=== PATIENT | female | born 2000 | race Two or more races ===

== ENCOUNTER 2024-02-11 07:44 | Inpatient (IN) | payer BC ==
[~2024-02-11] VITALS: Ht 152.4 cm; Wt 117.9 kg
[2024-02-11] MEDS ORDERED: MAGNESIUM SULFATE IN WATER 4 GM/100 ML PIGGYBACK IV ONE ×2 (07:55→09:45)
[2024-02-11] MEDS ORDERED: AMPICILLIN SODIUM 2,000 MG VIAL ONE (07:55)
[2024-02-11] MEDS ORDERED: MAGNESIUM SULFATE IN WATER 0.04 GM/ML IV.SOLN IV ONE ×2 (08:33→12:53)
[2024-02-11 08:42] LABS: HEMATOCRIT 34.5 % (36.0-45.00); HEMOGLOBIN 11.3 g/dL (12.0-15.00); MEAN CELL VOLUME 77.2 fL (80.00-100.00); MEAN CORPUSCULAR HEMOGLOBIN 25.3 pg (27.00-32.0); MEAN CORPUSCULAR HGB CONC 32.8 g/dl (32.0-36.0); PLATELET COUNT 226 K/uL (150-450); RED BLOOD COUNT 4.46 M/uL (4.00-6.00); RED CELL DISTRIBUTION WIDTH 16.1 % (11.5-14.5)
[2024-02-11] MEDS ORDERED: PRENATAL TABLE1 EAC1 PO (08:48)
[2024-02-11 08:54] LABS: PH,URINE 6.5 (5.0-8.0); URINE APPEARANCE Cloudy; URINE BILIRRUBIN Negative (NEGATIVE); URINE BLOOD Small; URINE COLOR Yellow; URINE GLUCOSE Negative (NEGATIVE); URINE LEUKOCYTE Trace; URINE NITRATE Negative; URINE PROTEIN >=1000 (NEGATIVE)
[2024-02-11 08:57] LABS: URINE RBC 4.7 uL (0.0-20.8); URINE WBC 192.6 uL (0.0-23.2)
[2024-02-11] MEDS ORDERED: OXYTOCIN 10 UNITS/ML VIAL ONE ×2 (08:57→12:56)
[2024-02-11] MEDS ORDERED: ERYTHROMYCIN BASE 3.5 GM OINT...G. OP ONE (08:57)
[2024-02-11 09:10] LABS: INR < 0.93; PARTIAL THROMBOPLASTIN TIME 31.2 SECONDS (22.0-34.0); PROTHROMBIN TIME 9.6 SECONDS (9.0-11.5)
[2024-02-11] MEDS ORDERED: LABETALOL HCL 100 MG/20 ML ML ONE ×4 (09:26→13:48)
[2024-02-11 09:29] LABS: BILIRUBIN TOTAL 0.58 mg/dL (0.3-1.2); CALCIUM 8.7 mg/dL (8.5-10.1); CREATININE SERUM 0.67 mg/dL (0.55-1.02); GFR 111.11; GLOBULINA 3.7 G/DL (2.4-3.5); POTASSIUM 3.79 mEq/L (3.5-5.1); TOTAL PROTEIN 5.7 gm/dL (6.4-8.2)
[2024-02-11] MEDS ORDERED: CEFOXITIN SODIUM 2,000 MG VIAL IV SCH (09:30)
[2024-02-11] MEDS ORDERED: ERYTHROMYCIN BASE 1 GM TUBE OP ONE (09:30)
[2024-02-11] MEDS ORDERED: OXYTOCIN 10 UNITS/ML VIAL IV ONE (09:30)
[2024-02-11] MEDS ORDERED: LABETALOL HCL 100 MG/20 ML ML IV PUSH ONE (09:30)
[2024-02-11 09:33] LABS: URINE BACTERIA > 9821.5 uL (0.0-1933); URINE EPITHELIAL CELLS > 201.7 uL (0.0-38.8)
[2024-02-11 09:35] LABS: URINE YEAST NEGATIVE /hpf
[2024-02-11] MEDS ORDERED: AMPICILLIN SODIUM 2,000 MG VIAL IV ONE (09:45)
[2024-02-11] MEDS ORDERED: MAGNESIUM SULFATE IN WATER 0.04 GM/ML IV.SOLN IV SCH (09:45)
[2024-02-11] MEDS ORDERED: ENALAPRILAT DIHYDRATE 1.25 MG/ML VIAL IV ONE ×2 (10:32→12:00)
[2024-02-11 10:57] LABS: RH POSITIVE
[2024-02-11] MEDS ORDERED: SUGAMMADEX SODIUM 200 MG/2 ML VIAL IV ONE ×2 (11:14→12:00)
[2024-02-11] MEDS ORDERED: MEPERIDINE HCL/PF 50 MG/ML VIAL IM PRN (11:45)
[2024-02-11] MEDS ORDERED: OXYTOCIN 1,000 ML IV SCH (11:45)
[2024-02-11] MEDS ORDERED: PROMETHAZINE HCL 50 MG/ML AMPUL IM PRN (11:45)
[2024-02-11 12:20] LABS: ABG PH 7.246 (7.35-7.45)
[2024-02-11 12:21] LABS: ABG PO2 19.6 mmHg (80-100); BASE EXCESS -2.7 mmol/l; BICARBONATE 25.9 mmol/l (23-25); SaO2 22.1 %; Tco2 27.8 mmol/l; o2 21 %
[2024-02-11] MEDS ORDERED: SIMETHICONE 125 MG CAPSULE PO SCH (13:00)
[2024-02-11] MEDS ORDERED: AMPICILLIN SODIUM 1,000 MG VIAL IV SCH (13:00)
[2024-02-11] MEDS ORDERED: LABETALOL HCL 100 MG/20 ML ML IV PUSH STA ×4 (13:55→14:29)
[2024-02-11] MEDS ORDERED: hydrALAZINE HCL 20 MG VIAL ONE (14:40)
[2024-02-11] MEDS ORDERED: hydrALAZINE HCL 20 MG VIAL IV STA (14:46)
[2024-02-11] MEDS ORDERED: PROMETHAZINE HCL 50 MG/ML AMPUL ONE (14:47)
[2024-02-11] MEDS ORDERED: MORPHINE SULFATE 4 MG/ML CARTRIDGE IV PRN (15:15)
[2024-02-11 17:30] LABS: HEMATOCRIT 30.9 % (36.0-45.00); HEMOGLOBIN 10.1 g/dL (12.0-15.00); MEAN CELL VOLUME 77.6 fL (80.00-100.00); MEAN CORPUSCULAR HEMOGLOBIN 25.3 pg (27.00-32.0); MEAN CORPUSCULAR HGB CONC 32.6 g/dl (32.0-36.0); PLATELET COUNT 202 K/uL (150-450); RED BLOOD COUNT 3.98 M/uL (4.00-6.00)
[2024-02-11] MEDS ORDERED: SIMETHICONE 125 MG CAPSULE PO ONE (18:01)
[2024-02-11 18:15] LABS: ALBUMIN 1.6 gm/dL (3.4-5.0); BILIRUBIN TOTAL 0.52 mg/dL (0.3-1.2); CALCIUM 8.4 mg/dL (8.5-10.1); CREATININE SERUM 0.59 mg/dL (0.55-1.02); GFR 128.67; GLOBULINA 3.2 G/DL (2.4-3.5); MAGNESIUM 3.9 mg/dL (1.8-2.4); POTASSIUM 3.98 mEq/L (3.5-5.1); TOTAL PROTEIN 4.8 gm/dL (6.4-8.2)
[2024-02-11] MEDS ORDERED: LABETALOL HCL 100 MG TABLET PO SCH (19:00)
[2024-02-11] MEDS ORDERED: KETOROLAC TROMETHAMINE 30 MG VIAL IV ONE (19:00)
[2024-02-11] MEDS ORDERED: LABETALOL HCL 100 MG TABLET PO ONE (19:50)
[2024-02-11] MEDS ORDERED: hydrALAZINE HCL 20 MG VIAL IV ONE (21:20)
[2024-02-12] MEDS ORDERED: LABETALOL HCL 200 MG TABLET PO ONE (08:27)
[2024-02-12] MEDS ORDERED: LABETALOL HCL 100 MG TABLET PO SCH (09:00)
[2024-02-12] MEDS ORDERED: MAGNESIUM SULFATE IN WATER 500 ML IV SCH (09:45)
[2024-02-12] MEDS ORDERED: TRAMADOL HCL 50 MG TABLET PO PRN (13:30)
[2024-02-12] MEDS ORDERED: ACETAMINOPHEN 500 MG GEL..CAP PO PRN (13:30)
[2024-02-12] MEDS ORDERED: KETOROLAC TROMETHAMINE 10 MG TABLET PO PRN (13:30)
[2024-02-12] MEDS ORDERED: DOCUSATE SODIUM 100MG CAP PO SCH (17:00)
[2024-02-12] MEDS ORDERED: NIFEDIPINE 30 MG TAB.SA.OSM PO ONE (18:30)
[2024-02-12] MEDS ORDERED: FAMOtidine 20 MG TABLET PO SCH (21:00)
[2024-02-13] MEDS ORDERED: NIFEDIPINE 30 MG TAB.SA.OSM PO SCH (14:19)
[2024-02-13 15:59] LABS: RAPID PLASMA REAGIN REACTIVE 4 DILS RPR (NONREACTIVE)
[2024-02-14] MEDS ORDERED: NAPR500T14 PO (09:10)
[2024-02-15] MEDS ORDERED: PENICILLIN G BENZATHINE LA 1.2 MMU/2 ML DISP.SYRIN IM ONE (09:00)
[2024-02-15] MEDS ORDERED: NIFEDIPINE20 MG PO (09:26)
== END 2024-02-15 18:17 | disposition home or self-care (01) | DRG 788 ==
LOC: OB/GYN 07:44 → LDR 07:44 → OB/GYN 02-12 14:16
PROVIDERS: Obstetrics & Gynecology; ADMIT Obstetrics & Gynecology; ATTEND Obstetrics & Gynecology
PROC: 4A1HXCZ Monitoring of Products of Conception, Cardiac Rate, External Approach (ICD-10-PCS; 2024-02-11)
PROC: 10D00Z1 Extraction of Products of Conception, Low, Open Approach (ICD-10-PCS; principal; 2024-02-11 08:00)
DX: O14.14 Severe pre-eclampsia complicating childbirth (principal); O36.8330 Maternal care for abnormalities of the fetal heart rate or rhythm, third trimester, not applicable or unspecified; Z3A.40 40 weeks gestation of pregnancy; Z37.0 Single live birth; Z20.822 Contact with and (suspected) exposure to COVID-19